=== PATIENT | female | born 1970 | race Caucasian/White ===

== ENCOUNTER 2021-10-02 01:29 | Outpatient (CLI) | payer MEDICAID, SELFPAY ==
[2021-10-02 11:59] VITALS: BP 120/79; PULSE 79; RESP 16; TEMP 36.6; O2SAT 95
[2021-10-02 12:08] VITALS: BP 118/84; PULSE 73; RESP 16; TEMP 36.6; O2SAT 95
[2021-10-02 12:10] VITALS: BP 113/66; PULSE 66; RESP 16; TEMP 36.6; O2SAT 96
[2021-10-02 12:23] VITALS: BP 120/77; PULSE 65; RESP 16; TEMP 36.9; O2SAT 96
[2021-10-02 12:49] VITALS: BP 131/84; PULSE 84; RESP 16; TEMP 36.5; O2SAT 97
== END 2021-10-02 01:30 | disposition home or self-care (01) ==
PROVIDERS: Visit Provider Family Medicine
DX: U07.1 COVID-19 (principal)
CPT/HCPCS: 96365